=== PATIENT | male | born 2000 | race Caucasian/White ===

== ENCOUNTER 2022-12-23 09:35 | Outpatient (CLI) | payer BC | END 2022-12-23 09:36 | disposition home or self-care (01) | LOC: SCSMRI 09:35 | PROVIDERS: ATTEND Orthopaedic Surgery | DX: M23.91 Unspecified internal derangement of right knee (principal); S83.241A Other tear of medial meniscus, current injury, right knee, initial encounter; S86.811A Strain of other muscle(s) and tendon(s) at lower leg level, right leg, initial encounter ==